=== PATIENT | female | born 1990 | race Caucasian/White ===

== ENCOUNTER 2016-08-14 10:11 | Emergency (ER) | payer MEDICAID ==
[2016-08-14] MEDS ORDERED: DIAZEPAM 5 MG/ML SYRG IM ONE (10:55)
[2016-08-14] MEDS ORDERED: KETOROLAC TROMETHAMINE 60 MG/2 ML VIAL IM ONE ×2 (10:55→11:00)
[2016-08-14] MEDS ORDERED: DIAZEPAM 5 MG/ML SYRG ONE (11:00)
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
[2016-08-14 11:24] VITALS: BP 129/73
== END 2016-08-14 12:38 | disposition home or self-care (01) ==
LOC: ER 10:11
DX: S00.83XA Contusion of other part of head, initial encounter (principal); S13.9XXA Sprain of joints and ligaments of unspecified parts of neck, initial encounter; Y04.2XXA Assault by strike against or bumped into by another person, initial encounter; Y93.9 Activity, unspecified; Y92.003 Bedroom of unspecified non-institutional (private) residence as the place of occurrence of the external cause